=== PATIENT | female | born 1985 | race Caucasian/White ===

== ENCOUNTER 2023-10-28 18:53 | Inpatient (IN) | payer MEDICAID ==
[~2023-10-28] VITALS: Ht 165.1 cm; Wt 74.1 kg
[2023-10-28 20:13] LABS: CHLORIDE 105 mEq/L (98-107); POTASSIUM 3.7 mEq/L (3.5-5.1); SODIUM 136 mEq/L (136-145)
[2023-10-28 20:14] LABS: CALCIUM 8.9 mg/dL (8.7-10.4); CARBON DIOXIDE 25 mEq/L (21-32)
[2023-10-28] MEDS ORDERED: LACTATED RINGERS 1,000 ML IV SCH (20:15)
[2023-10-28] MEDS ORDERED: ONDANSETRON HCL 4MG/2ML INJ IV ONE (20:15)
[2023-10-28 20:19] LABS: B-HCG QUANTITATIVE 702 mIU/mL (<3); CREATININE 0.6 mg/dL (0.6-1.0); GLUCOSE 92 mg/dL (70-105); UREA NITROGEN BLOOD 15 mg/dL (9-23)
[2023-10-28 20:21] LABS: ALANINE AMINOTRANSFERASE 19 IU/L (10-49); ASPARTATE AMINOTRANSFERASE 20 IU/L (<34); BILIRUBIN TOTAL 0.4 mg/dL (0.1-1.0); PROTEIN TOTAL 6.6 g/dL (6.0-8.3)
[2023-10-28 20:23] LABS: BASOPHILS % 0.3 % (0.0-2.0); EOSINOPHILS % 0.5 % (0.0-5.0); HEMATOCRIT. 30.6 % (36.0-48.0); HEMOGLOBIN. 10.5 g/dL (12.0-16.0); LYMPHOCYTES % 15.1 % (20.0-50.0); MEAN CORPUSCULAR HEMOGLOBIN 33.4 pg (28.0-32.0); MEAN CORPUSCULAR HGB CONC 34.1 g/dL (31.0-37.0); MEAN CORPUSCULAR VOLUME 97.9 fL (81.0-99.0); MEAN PLATELET VOLUME 8.1 fl (7.4-10.4); MONOCYTES % 5.6 % (2.0-8.0); NEUTROPHILS % 78.5 % (40.0-76.0); PLATELET 255 x1000/uL (130-400); RED BLOOD CELL COUNT 3.13 mill/uL (4.2-5.4); RED CELL DISTRIBUTION WIDTH 13.6 % (11.6-14.6); WHITE BLOOD COUNT 16.6 x1000/uL (4.5-11.0)
[2023-10-28] MEDS ORDERED: TRANEXAMIC ACID 1,000MG/10ML IV ONE (20:45)
[2023-10-28] MEDS: TRANEXAMIC ACID 1000MG PREMIX 100 ML IV NR (21:06)
[2023-10-29] VITALS (13 sets, daily range): BP systolic 85–104; BP diastolic 42–53; PULSE 58–85; RESP 12–26; TEMP 97.1–98.1; O2SAT 100
[2023-10-29] MEDS: SODIUM CHLORIDE 0.9% 1,000 ML IV SCH (08:33)
[2023-10-29 10:30] LABS: BASOPHILS % 0.2 % (0.0-2.0); EOSINOPHILS % 0.4 % (0.0-5.0); HEMATOCRIT. 29.3 % (36.0-48.0); HEMOGLOBIN. 10.3 g/dL (12.0-16.0); LYMPHOCYTES % 22.6 % (20.0-50.0); MEAN CORPUSCULAR HEMOGLOBIN 33.2 pg (28.0-32.0); MEAN CORPUSCULAR HGB CONC 35.2 g/dL (31.0-37.0); MEAN CORPUSCULAR VOLUME 94.3 fL (81.0-99.0); MEAN PLATELET VOLUME 8.4 fl (7.4-10.4); NEUTROPHILS % 71.8 % (40.0-76.0); PLATELET 188 x1000/uL (130-400); RED CELL DISTRIBUTION WIDTH 14.4 % (11.6-14.6); WHITE BLOOD COUNT 13.6 x1000/uL (4.5-11.0)
[2023-10-29 10:47] LABS: CARBON DIOXIDE 24 mEq/L (21-32); CHLORIDE 107 mEq/L (98-107); POTASSIUM 3.9 mEq/L (3.5-5.1); SODIUM 137 mEq/L (136-145)
[2023-10-29 10:48] LABS: CALCIUM 8.5 mg/dL (8.7-10.4)
[2023-10-29 10:52] LABS: CREATININE 0.6 mg/dL (0.6-1.0); GLUCOSE 97 mg/dL (70-105)
[2023-10-29 10:53] LABS: UREA NITROGEN BLOOD 12 mg/dL (9-23)
[2023-10-29 10:54] LABS: ALANINE AMINOTRANSFERASE 13 IU/L (10-49); ALBUMIN 3.3 g/dL (3.2-4.8); ASPARTATE AMINOTRANSFERASE 18 IU/L (<34)
[2023-10-29 10:55] LABS: BILIRUBIN TOTAL 0.9 mg/dL (0.1-1.0); PROTEIN TOTAL 5.3 g/dL (6.0-8.3)
[2023-10-29] MEDS: SODIUM CHLORIDE 0.9% 500 ML IV NR (12:44)
== END 2023-10-29 17:50 | disposition home or self-care (01) | DRG 564 ==
LOC: ER 18:53 → EDBEDREQ 10-29 00:17 → EDBEDREQDT 10-29 00:17 → EDBEDREQTM 10-29 00:17 → 5EST 10-29 03:02
PROVIDERS: ADMIT Internal Medicine; ATTEND Internal Medicine
PROC: 30233N1 Transfusion of Nonautologous Red Blood Cells into Peripheral Vein, Percutaneous Approach (ICD-10-PCS; principal; 2023-10-29)
DX: O03.9 Complete or unspecified spontaneous abortion without complication (principal); Z3A.11 11 weeks gestation of pregnancy; O03.8 Other and unspecified complications following complete or unspecified spontaneous abortion
CPT/HCPCS: 36415; 76801; 80053; 84702; 85025; 86850; 86900; 86920; 88309; 99291; J7030; P9016